=== PATIENT | male | born 1950 | race American Indian/Alaskan Native ===

== ENCOUNTER 2020-04-01 10:14 | Emergency (ER) | payer SELFPAY ==
--- NOTE | 2020-04-01 10:42 | Event Note ---
ED Screening Note ED Screening Note: presents for weakness, fatigue +BLE edema states he has burning sensation and pain in the esophagus for 4 months has lost 57lbs in 4 months This initial assessment/diagnostic orders/clinical plan/treatment(s) is/are subject to change based on patients health status, clinical progression and re-assessment by fellow clinical providers in the ED. Further treatment and workup at subsequent clinical providers discretion. Patient/guardian urged not to elope from the ED as their condition may be serious if not clinically assessed and managed. Initial orders include: labs, XR, EKG
--- NOTE | 2020-04-01 11:14 | XRay Report ---
CHEST 2 VIEWS INDICATION: weakness, leg swelling. COMPARISON: 12/29/2017 FINDINGS: Support devices: None. Heart: Within normal limits. Lungs/pleura: A small to medium left subpulmonic pleural effusion has developed since the previous ex am. There is minor compressive atelectasis at the left lung base. Otherwise, the lungs are clear. No pneumothorax. Additional findings: None. IMPRESSION: Small the medium left pleural effusion of uncertain etiology. Signer Name: Houston Cespedes Jr, MD Signed: 04/01/2020 11:10 AM Workstation Name: [id number]
--- NOTE | 2020-04-01 11:19 | Emergency Department Report ---
HPI - General Chief Complaint: Weakness Time Seen by Provider: 04/01/20 10:39 - HPI HPI: This is a 69-year-old -[place] male who presents to the emergency department with complaint of weight loss, generalized weakness, and a burning sensation that he feels in the chest. Overall the patient says that he has lost 57 pounds over the past 4 months. The patient has some severe burning pain to the mid chest and upper abdomen that worsens after eating or drinking and often worsens with laying flat. Because of this the patient has been sleeping u pright. The patient tried some [id number] reflux medications without any relief. Patient says that for the past week he has been having bilateral lower extremity swelling. He denies any shortness of breath, fever, nausea, vomiting, dysuria, constipation, diarrhea. He does not have a primary care physician. No recent travel or sick contacts at home. He is a tobacco smoker, but denies any illicit drug use. ED Past Medical Hx - Past Medical History Hx Hypertension: Yes Hx Diabetes: Yes Hx COPD: (bronchitis) - Surgical History Additional Surgical History: jaw - Social History Smoking Status: Current Every Day Smoker Substance Use Type: None - Medications Home Medications: Home Medications Medication Instructions Recorded Confirmed Last Taken Type Furosemide [Lasix TAB] 20 mg PO ONCE #3 tablet 04/01/20 Unknown Rx Omeprazole 20 mg PO QDAY #30 capsule. 04/01/20 Unknown Rx ED Review of Systems ROS: Stated complaint: ESOPHASUS/PAIN IN KIDNEYS Other details as noted in HPI Comment: All other systems reviewed and negative Constitutional: weakness. denies: fever Eyes: denies: eye pain, vision change ENT: denies: ear pain, throat pain Respiratory: denies: cough, shortness of breath Cardiovascular: chest pain (Midsternal chest burning sensation), edema Gastrointestinal: abdominal pain. denies: vomiting, diarrhea, constipation Genitourinary: denies: dysuria, discharge Musculoskeletal: back pain. denies: joint swelling, arthralgia Skin: denies: rash, lesions Neurological: denies: headache, numbness, paresthesias Physical Exam - Physical Exam Vital Signs: Vital Signs 04/01/20 10:22 Temperature 98.1 F Pulse Rate 97 H Respiratory 16 Rate Blood Pressure 102/67 O2 Sat by Pulse 98 Oximetry Physical Exam: GENERAL: Thin habitus. HENT: Normocephalic. Atraumatic. Patient has moist mucous membranes. EYES: Extraocular motions are intact. NECK: Supple. Trachea is midline. CHEST/LUNGS: Clear to auscultation. There is no respiratory distress noted. HEART/CARDIOVASCULAR: Regular. There is no tachycardia. There is no murmur. ABDOMEN: Abdomen is soft, nontender. Patient has normal bowel sounds. SKIN: 1-2+ pitting edema to the bilateral lower extremities from the knees distally. NEURO: The patient is awake, alert, and oriented. The patient is cooperative. The patient has no focal neurologic deficits. Normal speech. Cranial nerves II through XII grossly intact. MUSCULOSKELETAL: There is no tenderness or deformity. There is no limitation range of motion. There is no evidence of acute injury. BACK: No CVA tenderness to palpation bilaterally. ED Course Vital Signs 04/01/20 10:22 Temperature 98.1 F Pulse Rate 97 H Respiratory 16 Rate Blood Pressure 102/67 O2 Sat by Pulse 98 Oximetry ED Medical Decision Making - Lab Data Result diagrams: 04/01/20 11:03 04/01/20 11:03 Lab Results 04/01/20 04/01/20 04/01/20 Range/Units 11:03 11:03 12:20 WBC 9.2 (4.5-11.0) K/mm3 RBC 4.79 (3.65-5.03) M/mm3 Hgb 10.3 L (11.8-15.2) gm/dl Hct 32.5 L (35.5-45.6) % MCV 68 L (84-94) fl MCH 22 L (28-32) pg MCHC 32 (32-34) % RDW 19.8 H (13.2-15.2) % Plt Count 723 H (140-440) K/mm3 Lymph % (Auto) 6.5 L (13.4-35.0) % Sargent % (Auto) 9.4 H (0.0-7.3) % Eos % (Auto) 0.7 (0.0-4.3) % Baso % (Auto) 0.4 (0.0-1.8) % Lymph # (Auto) 0.6 L (1.2-5.4) K/mm3 Sargent # (Auto) 0.9 H (0.0-0.8) K/mm3 Eos # (Auto) 0.1 (0.0-0.4) K/mm3 Baso # (Auto) 0.0 (0.0-0.1) K/mm3 Seg Neutrophils % 83.0 H (40.0-70.0) % Seg Neutrophils # 7.6 (1.8-7.7) K/mm3 Sodium 132 L (137-145) mmol/L Potassium 3.9 (3.6-5.0) mmol/L Chloride 93.6 L (98-107) mmol/L Carbon Dioxide 29 (22-30) mmol/L Anion Gap 13 mmol/L BUN 8 L (9-20) mg/dL Creatinine 0.7 L (0.8-1.3) mg/dL Estimated GFR > 60 ml/min BUN/Creatinine Ratio 11 % Glucose 103 H (75-100) mg/dL Calcium 8.7 (8.4-10.2) mg/dL Magnesium 2.10 (1.7-2.3) mg/dL Total Bilirubin 0.40 (0.1-1.2) mg/dL AST 32 (5-40) units/L ALT 20 (7-56) units/L Alkaline Phosphatase 374 H (35-129) units/L Total Creatine Kinase 57 (55-170) units/L Troponin T < 0.010 (0.00-0.029) ng/mL NT-Pro-B Natriuret Pep 124.3 (0-900) pg/mL Total Protein 5.4 L (6.3-8.2) g/dL Albumin 3.0 L (3.9-5) g/dL Albumin/Globulin Ratio 1.3 % TSH 2.380 (0.270-4.200) mlU/mL - Radiology Data Radiology results: report reviewed CHEST 2 VIEWS INDICATION: weakness, leg swelling. COMPARISON: 12/29/2017 FINDINGS: Support devices: None. Heart: Within normal limits. Lungs/pleura: A small to medium left subpulmonic pleural effusion has developed since the previous exam. There is minor compressive atelectasis at the left lung base. Otherwise, the lungs are clear. No pneumothorax. Additional findings: None. IMPRESSION: Small the medium left pleural effusion of uncertain etiology. DUPLEX DOPPLER LOWER EXTREMITY VEINS, BILATERAL INDICATION / CLINICAL INFORMATION: b/l LE swelling. TECHNIQUE: Duplex doppler imaging was performed through the veins of both lower extremities using venous compression and other maneuvers. COMPARISON: None available. FINDINGS: RIGHT COMMON FEMORAL VEIN: Negative. RIGHT FEMORAL VEIN: Negative. RIGHT POPLITEAL VEIN: Negative. RIGHT CALF VEINS: Negative. LEFT COMMON FEMORAL VEIN: Negative. LEFT FEMORAL VEIN: Negative. LEFT POPLITEAL VEIN: Negative. LEFT CALF VEINS: Negative. ADDITIONAL FINDINGS: None. IMPRESSION: No sonographic evidence for DVT in either lower extremity. - Medical Decision Making This patient presents with a history of a 57 pound weight loss over the past 4 months. Over this time he has been having a burning sensation to the mid sternum and epigastric region that, based on his history, sounds consistent with reflux. The patient says that it has limited the types of food and the amount of food that he has eaten, which may be a reason for the patient's weight loss. However, the patient will need further evaluation by gastroenterology, primary care, to rule out things like malignancy. On examination the patient has a thin habitus and has bilateral lower extremity pitting edema to the knees distally. Heart and lung sounds are normal to auscultation. The patient's labs have been unremarkable including CBC, metabolic panel, TSH, troponin, proBNP, except for some mild anemia that does not require transfusion and some mild thrombocytosis. Chest x-ray appears unremarkable but was read by radiology as having a mild to moderate left lower lung pleural effusion. No obvious pneumonia. No obvious mass. Bilateral lower extremity venous Doppler ultrasound was negative for any DVT. Vital signs have been reassuring throughout his ED course including being afebrile. All the patient's lab and imaging results have been discussed with the patient. He understands the importance of following up with a primary care physician and gastroenterology and has been given outpatient referrals for both. He has been given a prescription for Lasix and omeprazole. We discussed dietary changes. He will return to the emergency department with any worsening of his symptoms or with any acute distress. Critical Care Time: No Critical care attestation.: If time is entered above; I have spent that time in minutes in the direct care of this critically ill patient, excluding procedure time. ED Disposition Clinical Impression: Bilateral lower extremity edema, Weight loss GERD (gastroesophageal reflux disease) Qualifiers: Esophagitis presence: esophagitis presence not specified Qualified Code(s): K21.9 - Gastro-esophageal reflux disease without esophagitis Disposition: DC-01 TO HOME OR SELFCARE Is pt being admited?: No Condition: Stable Instructions: Gastroesophageal Reflux Disease, Adult, Peripheral Edema Additional Instructions: Please follow-up with a primary care physician in the next few days. I have given you a referral for a local gastroenterology group to follow-up regarding the esophageal burning pain and unintended weight loss. Try to avoid drinks that are highly caffeinated, avoid alcohol, acidic foods and spicy foods. Take the medications as prescribed. Return to the emergency department with any worsening of your symptoms, new or concerning symptoms not addressed during this current emergency department visit, or with any acute distress. Prescriptions: Furosemide [Lasix TAB] 20 mg PO ONCE #3 tablet Omeprazole 20 mg PO QDAY #30 capsule.dr Referrals: LING GANDHI MD [Primary Care Provider] - 3-5 Days [facility] [Provider Group] - 3-5 Days KAREEM KINSEY MD [Staff Physician] - 3-5 Days ABHAY PADILLA MD [Staff Physician] - 3-5 Days [facility] [Provider Group] - 3-5 Days Time of Disposition: 15:08
[2020-04-01 11:39] LABS: Basophils % (Auto) 0.4 % (0.0-1.8); Eosinophils # (Auto) 0.1 K/mm3 (0.0-0.4); Eosinophils % (Auto) 0.7 % (0.0-4.3); Hematocrit 32.5 % (35.5-45.6); Hemoglobin 10.3 gm/dl (11.8-15.2); Lymphocytes # (Auto) 0.6 K/mm3 (1.2-5.4); Lymphocytes % (Auto) 6.5 % (13.4-35.0); Mean Corpuscular HGB Conc 32 % (32-34); Monocytes # (Auto) 0.9 K/mm3 (0.0-0.8); Monocytes % (Auto) 9.4 % (0.0-7.3); Platelet Count 723 K/mm3 (140-440); Red Blood Count 4.79 M/mm3 (3.65-5.03); Red Cell Distribution Width 19.8 % (13.2-15.2)
[2020-04-01 11:52] LABS: Alanine Aminotransferase 20 units/L (7-56); Blood Urea Nitrogen 8 mg/dL (9-20); Calcium 8.7 mg/dL (8.4-10.2); Hemolysis Index 0
[2020-04-01 11:55] LABS: Mean Corpuscular Volume 68 fl (84-94)
[2020-04-01 12:20] LABS: BUN/Creatinine Ratio 11
--- NOTE | 2020-04-01 14:49 | Vascular Lab Report ---
DUPLEX DOPPLER LOWER EXTREMITY VEINS, BILATERAL INDICATION / CLINICAL INFORMATION: b/l LE swelling. TECHNIQUE: Duplex doppler imaging was performed through the veins of both lower extremities using venous saloni lamonte and other maneuvers. COMPARISON: None available. FINDINGS: RIGHT COMMON FEMORAL VEIN: Negative. RIGHT FEMORAL VEIN: Negative. RIGHT POPLITEAL VEIN: Negative. RIGHT CALF VEINS: Negative. LEFT COMMON FEMORAL VEIN: Negative. LEFT FEMORAL VEIN: Negative. LEFT POPLITEAL VEIN: Negative. LEFT CALF VEINS: Negative. ADDITIONAL FINDINGS: None. IMPRESSION: No sonographic evidence for DVT in either lower extremity. Signer Name: Kunal Jacob MD Signed: 04/01/2020 2:44 PM Workstation Name: [id number]
[2020-04-01] MEDS ORDERED: FUROSEMIDE 20 MG TAB PO ONE (14:51)
[2020-04-01 15:22] VITALS: BP 112/76
== END 2020-04-01 15:21 | disposition home or self-care (01) ==
LOC: ED 10:14
DX: R60.0 Localized edema (principal); K21.9 Gastro-esophageal reflux disease without esophagitis; R63.4 Abnormal weight loss; I10 Essential (primary) hypertension; E11.9 Type 2 diabetes mellitus without complications; F17.200 Nicotine dependence, unspecified, uncomplicated; Z79.899 Other long term (current) drug therapy; Z88.0 Allergy status to penicillin; Z88.2 Allergy status to sulfonamides
CPT/HCPCS: 36415; 71046; 80053; 82550; 83735; 83880; 84443; 84484; 85025; 93005; 93970